=== PATIENT | male | born 1950 | race Caucasian/White ===

== ENCOUNTER 2018-10-26 01:15 | Outpatient (CLI) | payer MEDICARE, BC, SELFPAY ==
[2018-10-26 11:23] LABS: ALT 24 U/L (12-78); AST 20 U/L (15-37); Albumin 3.8 g/dL (3.4-5.0); Alkaline Phosphatase 72 U/L (46-116); Anion Gap 10.8 mmol/L (3-11); BUN 21 mg/dL (7-18); Bilirubin, Direct 0.13 mg/dL (0.00-0.20); Bilirubin, Total 0.6 mg/dL (0.2-1.0); CO2 28.2 mmol/L (21.0-32.0); CREATININE 1.07 mg/dL (0.70-1.30); Calcium 9.3 mg/dL (8.5-10.1); Chloride 105 mmol/L (98-107); Glucose 97 mg/dL (70-100); Potassium 3.9 mmol/L (3.5-5.1); Sodium 144 mmol/L (136-145); Total Protein 7.2 g/dL (6.4-8.2)
[2018-10-26 11:51] LABS: Calculated LDL 88 mg/dL; Cholesterol 163 mg/dL (50-200); HDL Cholesterol 52 mg/dL (40-60); Triglyceride 117 mg/dL (30-150)
[2018-10-27 11:09] LABS: PSA, Screening 1.9 ng/ml (0-4.5)
== END 2018-10-26 01:35 ==
PROVIDERS: PCP Family Medicine; Visit Provider Family Medicine
DX: G81.90 Hemiplegia, unspecified affecting unspecified side (principal); E78.00 Pure hypercholesterolemia, unspecified; I10 Essential (primary) hypertension; Z12.5 Encounter for screening for malignant neoplasm of prostate
CPT/HCPCS: 36415; 80053; 80061; 80076; 83721; 84153

== ENCOUNTER 2019-06-29 10:25 | Outpatient (CLI) | payer MEDICARE, BC, SELFPAY ==
--- NOTE | 2019-06-29 10:30 | DI.RAD_ITS ---
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 COMPARISON: No exams were available for comparison FINDINGS: MEDIASTINUM: Normal. HEART: Cardiomegaly PULMONARY VASCULATURE: Normal. LUNGS: Clear. PLEURAL SPACE: No pleural effusion or pneumothorax. BONE:Mild degenerative changes in the thoracic spine IMPRESSION: Cardiomegaly. No acute pulmonary findings. DATA REPOSITORY: RADIATION DOSE DELIVERED:
== END 2019-06-29 10:45 ==
PROVIDERS: PCP Family Medicine; Visit Provider Family Medicine
DX: R05 Cough (principal); I51.7 Cardiomegaly
CPT/HCPCS: 71046

== ENCOUNTER 2019-06-29 10:32 | Outpatient (CLI) | payer MEDICARE, BC, SELFPAY ==
[2019-07-02 14:03] LABS: COVID-19 RT-PCR Result Not Detected (NotDetected)
== END 2019-06-29 10:52 ==
PROVIDERS: PCP Family Medicine; Visit Provider Family Medicine
DX: Z20.828 Contact with and (suspected) exposure to other viral communicable diseases (principal); R05 Cough
CPT/HCPCS: U0003

== ENCOUNTER 2019-11-23 01:05 | Outpatient (CLI) | payer MEDICARE, BC, SELFPAY ==
--- NOTE | 2019-11-23 06:16 | DI.US_ITS ---
EXAM: US AAA SCREENING CLINICAL HISTORY: Routine screening FOR AAA, former tobacco user,z87.891 TECHNIQUE: Ultrasound performed using standard protocol. COMPARISON: No exams were available for comparison FINDINGS: Abdominal ultrasound was performed to evaluate abdominal aorta. Proximal aorta measures about 29 mil limeters in diameter which is mildly aneurysmal. The mid abdominal aorta measures about 26 millimete rs and the distal aorta measures about 19 millimeters. Common iliac arteries measure 17 millimeters in diameter maximally bilaterally. IMPRESSION: Borderline aneurysmal proximal abdominal aorta. No other significant findings. DATA REPOSITORY:
== END 2019-11-23 01:25 ==
PROVIDERS: PCP Family Medicine; Visit Provider Family Medicine
DX: Z87.891 Personal history of nicotine dependence (principal)
CPT/HCPCS: 76706

== ENCOUNTER 2020-11-17 02:07 | Outpatient (CLI) | payer MEDICARE, BC, SELFPAY ==
[2020-11-17 12:18] LABS: ALT 16 U/L (16-63); AST 19 U/L (15-37); Alkaline Phosphatase 77 U/L (46-116); Anion Gap 7.9 mmol/L (3-11); BUN 20 mg/dL (7-18); Bilirubin, Total 0.5 mg/dL (0.2-1.0); CO2 31.1 mmol/L (21.0-32.0); CREATININE 1.2 mg/dL (0.70-1.30); Calcium 8.8 mg/dL (8.5-10.1); Calculated LDL 85 mg/dL (<100); Chloride 104 mmol/L (98-107); Cholesterol 149 mg/dL (<200); Glucose 93 mg/dL (74-106); HDL Cholesterol 52 mg/dL (40-60); Potassium 3.5 mmol/L (3.5-5.1); Sodium 143 mmol/L (136-145); Total Protein 7.1 g/dL (6.4-8.2); Triglyceride 61 mg/dL (<150)
== END 2020-11-17 02:08 | disposition home or self-care (01) ==
LOC: LOS 02:07
PROVIDERS: PCP Family Medicine; Visit Provider Family Medicine
DX: I10 Essential (primary) hypertension (principal); E78.00 Pure hypercholesterolemia, unspecified
CPT/HCPCS: 36415; 80053; 80061

== ENCOUNTER 2020-12-29 02:19 | Outpatient (CLI) | payer MEDICARE, BC, SELFPAY ==
--- NOTE | 2020-12-29 06:45 | DI.US_ITS ---
Exam(s) US AAA DIAGNOSTIC EXAM: US AAA DIAGNOSTIC CLINICAL HISTORY: F/U Known AAA, needs annual surviellance,I71.4 COMPARISON: US US AAA SCREENING from 11/23/2019 US US AAA SCREENING from 11/23/2019 FINDINGS: Abdominal Aorta: Proximal: 3.2 x 3.1 cm Mid: 2.6 x 2.6 cm Distal: 2.3 x 2.2 cm Iliac's: Right: 1.3 x 1.4 cm Left: 1.2 x 1.5 cm The doppler velocities are within normal limits. IMPRESSION: 3.2 x 3.1 cm proximal abdominal aortic aneurysm. DATA REPOSITORY:
== END 2020-12-29 02:39 ==
PROVIDERS: PCP Family Medicine; Visit Provider Family Medicine
DX: I71.4 Abdominal aortic aneurysm, without rupture (principal)
CPT/HCPCS: 76775

== ENCOUNTER 2021-01-25 12:56 | Emergency (ER) | payer MEDICARE, BC, SELFPAY ==
--- NOTE | 2021-01-25 13:00 | DI.RAD_ITS ---
Exam(s) XR HIP RT COMPLETE AP PELVIS EXAM: XR HIP RT COMPLETE AP PELVIS CLINICAL HISTORY: pain. TECHNIQUE: 2D digital imaging was performed. COMPARISON: No exams were available for comparison FINDINGS: There is no evidence of pelvic nor hip fracture. Mild degenerative changes are noted in the hips. S acroiliac joints appear unremarkable. Multilevel disc space narrowing noted in the lower lumbar spin e. IMPRESSION: As above but no fractures. DATA REPOSITORY: RADIATION DOSE DELIVERED:
--- NOTE | 2021-01-25 13:00 | DI.RAD_ITS ---
Exam(s) XR SHOULDER RT COMPLETE 2+V EXAM: XR SHOULDER RT COMPLETE 2+V CLINICAL HISTORY: pain. TECHNIQUE: 2D digital imaging was performed. COMPARISON: CR LEFT SHOULDER COMPLETE from 07/01/2014 FINDINGS: Three views the right shoulder reveal no evidence of fracture or dislocation. No abnormal soft tissu e calcifications. No degenerative changes. No osseous lesions. IMPRESSION: DATA REPOSITORY: RADIATION DOSE DELIVERED:
--- NOTE | 2021-01-25 13:00 | DI.RAD_ITS ---
Exam(s) XR ELBOW RT COMPLETE EXAM: XR ELBOW RT COMPLETE CLINICAL HISTORY: pain. TECHNIQUE: 2D digital imaging was performed. COMPARISON: No exams were available for comparison FINDINGS: Limited two view study reveals advanced degenerative changes. No obvious fractures. No obvious join t effusion. IMPRESSION: DATA REPOSITORY: RADIATION DOSE DELIVERED:
--- NOTE | 2021-01-25 13:00 | DI.RAD_ITS ---
Exam(s) XR KNEE RT 3V AP,LAT,BURT EXAM: XR KNEE RT 3V AP,LAT,BURT CLINICAL HISTORY: pain. TECHNIQUE: 2D digital imaging was performed. COMPARISON: No exams were available for comparison FINDINGS: Three views of the right knee reveal no evidence of fracture or obvious joint effusion. Minimal dege nerative changes. No osseous lesions. Bone density is age-appropriate. IMPRESSION: No fracture evident. DATA REPOSITORY: RADIATION DOSE DELIVERED:
[2021-01-25 13:01] VITALS: BP 143/96; PULSE 66; RESP 16; TEMP 36.3; O2SAT 95
--- NOTE | 2021-01-25 13:14 | ED.GENADUL_ITS ---
Discharge Plan Disposition Patient Disposition: HOME Condition: Stable Discharge Details Clinical Impression: Contusion of arm, right, Contusion of right hip, Contusion of right knee Primary Care Provider: Jayme Eden ED Provider: Mihai Friend Home Meds and New Rx's Prescriptions: Continued (DME) nebulizers Misc See Rx Instructions .ROUTE .MEDSUPPLY Qty: 1 RF: 0 sodium chloride 0.9 % solution for nebulization 2.5 ml IH Q2H PRN (Reason: chest congestion) Qty: 90 RF: 3 aspirin [Aspir-81] 81 MG tablet,delayed release (DR/EC) 81 mg PO DAILY RF: 0 cholecalciferol (vitamin D3) [Vitamin D3] 1,000 UNIT capsule 1,000 unit PO DAILY Qty: 100 RF: 6 polyethylene glycol 3350 [Miralax] 527 GM powder 17 g PO DAILY Qty: 1 RF: 3 docusate sodium 100 MG tablet 100 mg PO DAILY RF: 0 VALIUM 5 MG tablet 2.5 mg PO DAILY PRN Qty: 20 RF: 1 atorvastatin 40 mg tablet 40 mg PO DAILY Qty: 90 RF: 3 citalopram 40 mg tablet 40 mg PO DAILY Qty: 90 RF: 3 hydrochlorothiazide 50 mg tablet 50 mg PO DAILY Qty: 90 RF: 3 clonidine [Rvlufjar-ZEA-0] 0.3 mg/24 hr patch weekly 1 patch Transdermal WEEKLY Qty: 12 RF: 3 potassium chloride [Klor-Con 10] 10 mEq tablet extended release 20 meq PO DAILY Qty: 180 RF: 3 lisinopril 40 mg tablet 40 mg PO DAILY Qty: 90 RF: 3 minoxidil 10 mg tablet 10 mg PO BID Qty: 180 RF: 3 atenolol 25 mg tablet 25 mg PO BID Qty: 180 RF: 3 dantrolene 100 mg capsule 100 mg PO TID Qty: 270 RF: 3 gabapentin [Neurontin] 300 mg capsule 600 mg PO TID Qty: 540 RF: 3 latanoprost [Xalatan] 2.5 ML drops 1 drp OU HS RF: 0 dorzolamide [Trusopt] 10 ML drops 1 drp OD BID RF: 0 Discharge Instructions Instructions: Contusion in Adults (ED) Additional Instructions: your xrays did not show any concerning findings, no broken bones if pain continues in a week follow up with your primary care provider if you feel more ill, have new pain such as abdominal pain or chest pain return to the emergency department Medical Decision Making 70 yo male with hx of prior cva which left him with decreased sensation on the right, reduced function of the right leg though can still walk and no use of his right arm, who comes in with right hip pain. On Friday he was on the toilet and grabbed the door handle to get off the toilet which he normally does but then know turned and he fell onto his right side, no loc and states purely mechanical and has no preceding symptoms. He has had pain in the right shoulder and elbow area as well as right hip since. He is able to bear weight on the leg though with some pain. He has no traumatic findings on visual exam, no contusions or bony deformity of the arm or leg. He has some tenderness to the anterior shoulder and some olecranon tenderness, no range of motion of the arm but this is chronic from his stroke per the patient. Has tenderness over the right lateral hip, as well as anterior knee but is bearing weight and can range both extremities. Suspect contusion but will xray shoulder, elbow, hip and knee. No chest or abdominal tenderness and no head or neck tenderness so do not feel ct head, c spine, chest/abd/pelvis indicated xrays negative for acute findings, he remains stable and no new pain elsewhere. Suspect contusion, he is able to bear weight on the leg so do not feel ct or mri indicated. He will f/u with pcp if pain continues in a week and return precautions given Differential Diagnosis Differential Diagnosis: contusion, fracture Imaging Data Radiologic Study: Attestation: I personally reviewed and interpreted this imaging study as follows: Imaging: X-Ray Radiologist's impression: elbow FINDINGS: Limited two view study reveals advanced degenerative changes. No obvious fractures. No obvious joint effusion. Radiologic Study #2: Attestation: I personally reviewed and interpreted this imaging study as follows: Imaging: X-Ray Radiologist's impression: Exam(s) XR SHOULDER RT COMPLETE 2+V EXAM: XR SHOULDER RT COMPLETE 2+V CLINICAL HISTORY: pain. TECHNIQUE: 2D digital imaging was performed. COMPARISON: CR LEFT SHOULDER COMPLETE from 07/01/2014 FINDINGS: Three views the right shoulder reveal no evidence of fracture or dislocation. No abnormal soft tissue calcifications. No degenerative changes. No osseous l esions. Radiologic Study #3: Attestation: I personally reviewed and interpreted this imaging study as follows: Imaging: X-Ray Radiologist's impression: no acute findings hip xray Radiologic Study #4: Attestation: I personally reviewed and interpreted this imaging study as follows: Imaging: X-Ray Radiologist's impression: no findings on knee xray HPI General Mode of arrival: ambulatory . Date/Time Provider Initiated Documentation: 01/25/21 13:03 . Limitations to Documentation: no limitations . Information obtained by: patient . History of Present Illness 70 year old M presents to the emergency department with the chief complaint of right hip pain, described as moderate, Quality is described as aching, and it has been constant. No relieving factors improve symptom(s), No exacerbating factors reported . Patient notes no other symptoms.. Patient did receive the following treatments prior to arrival, none Related Data Home Medications Medication Instructions Recorded Confirmed aspirin [Aspir-81] 81 mg PO DAILY tab-cap 01/08/13 01/25/21 dorzolamide [Trusopt] 1 drp OD BID 07/01/14 01/25/21 latanoprost [Xalatan] 1 drp OU HS 07/01/14 01/25/21 cholecalciferol (vitamin D3) 1,000 unit PO DAILY #100 tab-cap 09/05/14 01/25/21 [Vitamin D3] docusate sodium 100 mg PO DAILY tab-cap 04/25/15 01/25/21 polyethylene glycol 3350 [Miralax] 17 g PO DAILY #1 bottle 04/25/15 01/25/21 nebulizers #1 each 06/25/19 12/08/20 sodium chloride 0.9 % for 2.5 ml IH Q2H PRN #90 ml 06/25/19 01/25/21 nebulization atorvastatin 40 mg tablet 40 mg PO DAILY #90 tab 02/15/20 01/25/21 citalopram 40 mg tablet 40 mg PO DAILY #90 tab 02/15/20 01/25/21 hydrochlorothiazide 50 mg tablet 50 mg PO DAILY #90 tab 02/15/20 01/25/21 clonidine 0.3 mg/24 hr weekly 1 patch TRANSDERMAL WEEKLY #12 ea 05/12/20 01/25/21 transdermal patch potassium chloride 10 mEq 20 meq PO DAILY #180 tab-cap 05/15/20 01/25/21 tablet,extended release lisinopril 40 mg tablet 40 mg PO DAILY #90 tab 08/17/20 01/25/21 minoxidil 10 mg tablet 10 mg PO BID #180 tab-cap 08/17/20 01/25/21 atenolol 25 mg tablet 25 mg PO BID #180 tab 11/16/20 01/25/21 dantrolene 100 mg capsule 100 mg PO TID #270 tab-cap 11/16/20 01/25/21 gabapentin 300 mg capsule 600 mg PO TID #540 cap 11/16/20 01/25/21 Previous Rx's Medication Instructions Recorded nebulizers #1 each 06/25/19 sodium chloride 0.9 % for 2.5 ml IH Q2H PRN #90 ml 06/25/19 nebulization atorvastatin 40 mg tablet 40 mg PO DAILY #90 tab 02/15/20 citalopram 40 mg tablet 40 mg PO DAILY #90 tab 02/15/20 hydrochlorothiazide 50 mg tablet 50 mg PO DAILY #90 tab 02/15/20 clonidine 0.3 mg/24 hr weekly 1 patch TRANSDERMAL WEEKLY #12 ea 05/12/20 transdermal patch potassium chloride 10 mEq 20 meq PO DAILY #180 tab-cap 05/15/20 tablet,extended release lisinopril 40 mg tablet 40 mg PO DAILY #90 tab 08/17/20 minoxidil 10 mg tablet 10 mg PO BID #180 tab-cap 08/17/20 atenolol 25 mg tablet 25 mg PO BID #180 tab 11/16/20 dantrolene 100 mg capsule 100 mg PO TID #270 tab-cap 11/16/20 gabapentin 300 mg capsule 600 mg PO TID #540 cap 11/16/20 Allergies Allergy/AdvReac Type Severity Reaction Status Date / Time Penicillins Allergy rash Verified 01/25/21 13:05 General Stated Complaint: Orthopedic MAURILIO: 3 Review of Systems All systems reviewed & are unremarkable except as noted in HPI and below Constitutional Constitutional: Denies chills, Denies fever(s) and Denies weakness Cardiovascular Cardiovascular: Denies chest pain and Denies dyspnea Respiratory Respiratory: Denies cough and Denies dyspnea Gastrointestinal Gastrointestinal: Denies abdominal pain, Denies nausea and Denies vomiting Musculoskeletal Musculoskeletal: Denies joint swelling Neurologic Neurologic: Denies weakness [facility] Medical History AAA (abdominal aortic aneurysm) 2.9 cm in 2020, needs annual surveillance Dysmetabolic syndrome 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 Essential hypertension Father Essential hypertension COPD (chronic obstructive pulmonary disease) Brother Age: 71 No problems noted. Brother Age: 74 No problems noted. Other Heart disease Social History Smoking/Tobacco Use Status: Former Tobacco Use Smoking risk assessment performed?: Yes Alcohol Intake: never Drug use: Never Substance use type: does not use Household members: spouse Housing: house Number of Children: 32 Communication Needs: None current occupation: retired from [employer] Parents What is your relationship status?: How often do you talk on the phone with friends or family?: three or more times per week How often do you get together with friends or relatives?: three or more times per week Panel score (0-1 are the most socially isolated patients): 2 What type of physical activity do you participate in: walking and regular exercise Duration: 15-30 minutes/day Frequency: daily Seatbelt use: always Drive intox or ride w/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 Working smoke detector in home: Yes Fire extinguisher in home: Yes Carbon monox detector in home: Yes Do you feel safe at home: Yes Do you feel safe in your relationship?: Yes Exam Const General: no acute distress Orientation: alert HENMT Head: normal to inspection Ears: external ears normal General nose exam: external nose normal Mouth: moist mucous membranes Eyes General: appearance normal, both eyes and all related structures Neck Neck: normal visual inspection Resp Effort & Inspection: normal respiratory effort and able to speak in complete sentences Cardio Rate: regular rate Skin General skin exam: no rashes or lesions noted Neuro General: patient alert and patient oriented x3 Extrem General: capillary refill normal Psych Mental Status: mental status grossly normal Course Vital Signs Vital signs: Vital Signs Temperature 36.3 C L 01/25/21 13:01 Pulse 66 01/25/21 13:01 Respiratory Rate 16 01/25/21 13:01 Blood Pressure 143/96 H 01/25/21 13:01 Pulse Oximetry 95 01/25/21 13:01 Temperature 36.3 C L 01/25/21 13:01 Temperature Source Tympanic 01/25/21 13:01 Pulse 66 01/25/21 13:01 Respiratory Rate 16 01/25/21 13:01 Blood Pressure 143/96 H 01/25/21 13:01 Blood Pressure Position Sitting 01/25/21 13:01 Pulse Oximetry 95 01/25/21 13:01 Pain Level 99 01/25/21 13:01
== END 2021-01-25 14:49 | disposition home or self-care (01) ==
PROVIDERS: Emergency Provider Emergency Medicine; PCP Family Medicine
DX: S70.01XA Contusion of right hip, initial encounter (principal); S80.01XA Contusion of right knee, initial encounter; S40.021A Contusion of right upper arm, initial encounter; M25.511 Pain in right shoulder; W19.XXXA Unspecified fall, initial encounter; I69.351 Hemiplegia and hemiparesis following cerebral infarction affecting right dominant side
CPT/HCPCS: 73562; 99284; 73030; 73080; 73502

== ENCOUNTER → 2021-12-10 02:03 | Outpatient (CLI) | payer MEDICARE, BC, SELFPAY ==
--- NOTE | 2021-12-10 07:15 | DI.US_ITS ---
Exam(s) US AAA DIAGNOSTIC EXAM: US AAA DIAGNOSTIC CLINICAL HISTORY: Annual surveillance OF AAA, I71.4 COMPARISON: US US AAA DIAGNOSTIC from 12/29/2020 FINDINGS: On the present study there is no evidence of true abdominal aortic aneurysm. Maximum diameter is 2.4 cm proximally and the abdominal aorta tapers normally towards its distal aspect. The visualized com mon iliac arteries to exhibit mild arterial megaly, with diameter 1.5 cm on the right and 1.6 cm on t he left. IMPRESSION: No evidence of abdominal aortic aneurysm. Mild arterial megaly of the common iliac arteries noted. DATA REPOSITORY:
== END ==
PROVIDERS: PCP Family Medicine; Visit Provider Family Medicine
DX: I71.4 Abdominal aortic aneurysm, without rupture (principal); I77.89 Other specified disorders of arteries and arterioles
CPT/HCPCS: 76775

== ENCOUNTER → 2021-12-24 09:08 | Outpatient (CLI) | payer MEDICARE, BC, SELFPAY ==
--- NOTE | 2021-12-24 08:16 | DI.CT_ITS ---
Exam(s) CT ABDOMEN PELVIS W EXAM: CT ABDOMEN PELVIS W CLINICAL HISTORY: rectal pain K62.89. TECHNIQUE: Imaging Protocol: Axial computed tomography images with coronal and sagittal reformatted images were created and reviewed CONTRAST MATERIAL: Intravenous: Omnipaque 350 Contrast volume:100 ml Oral: yes COMPARISON: US US AAA DIAGNOSTIC from 12/10/2021 FINDINGS: ABDOMEN: Lung Bases: The heart is enlarged. There is mitral annular calcification, aortic valve calcification as well as coronary artery calcification. The lung bases are clear. Liver: Normal density. No measurable mass. Gallbladder and biliary tract: No radiodense calculus or dilation. Pancreas: Normal density, no abnormal calcifications or inflammatory process. Spleen: Normal. Kidneys: Normal size, contour and axis. No radiodense stones or obstructive uropathy. No masses seen. Adrenal glands: No masses seen. Abdominal Aorta: Abdominal portion non-dilated. Mild atherosclerotic changes. PELVIS: Bladder: Nearly empty, not well evaluated. Question of diffuse wall thickening. No calculi.No gross evidence of a focal mass. Bowel: Moderate quantity of stool. No obstruction or bowel wall thickening. Appendix normal. No rec adelita wall thickening. Peritoneal cavity: No ascites, collection or mesenteric inflammatory response. Bones: Degenerative disc changes greatest at L3-4 and L4-5. Reproductive organs: Enlarged prostate. Lymph nodes: Unremarkable. Soft tissues: Bilateral inguinal hernias, right greater than left containing fat and a small amount o f fluid. Impression: Enlarged prostate. Bladder wall thickening. No rectal abnormality or other bowel abnormality identified. Bilateral inguinal hernias, right greater than left. RADIATION DOSE DELIVERED: 1,238.75mGy.cm Total DLP DATA REPOSITORY: All CT scans at this facility are submitted to the National Radiology Data Registry (NRDR) Dose Index Registry (DIR) with the [employer] ([employer]). RADIATION OPTIMIZATION: All CT scans at this facility use at least one of these dose optimization te chniques: automated exposure control; mA and/or kV adjustment per patient size (includes targeted exa ms where dose is matched to clinical indication); or iterative reconstruction.
[2021-12-24 09:47] LABS: Abs Immature Grans 0.02 10^3/uL (0.0-0.06); Absolute Basophil Count 0.04 10^3/uL (0.0-0.2); Absolute Lymphocyte Count 1.71 10^3/uL (1.2-3.4); Absolute Neutrophil Count 2.94 10^3/uL (1.2-6.7); Basophils % 0.7; Eosinophils % 3.6; HCT 39.3 % (40.0-50.0); HGB 14.3 g/dL (13.5-17.5); Immature Grans % 0.4; MCHC 36.4 % (32.0-36.0); MCV 91 fL (80-95); MPV 12.1 fL (8.0-11.0); Monocytes % 10.9; Neutrophils % 53.4; Platelet Count 139 10^3/uL (130-400); RBC 4.33 10^6/uL (4.36-5.78); RDW 12.5 % (11.8-14.1); RDW-SD 41.1 fL; WBC 5.51 10^3/uL (4.4-10.8)
[2021-12-24 10:05] LABS: ALT 19 U/L (16-63); AST 16 U/L (15-37); Albumin 3.5 g/dL (3.4-5.0); Alkaline Phosphatase 81 U/L (46-116); Anion Gap 8.9 mmol/L (3-11); BUN 15 mg/dL (7-18); Bilirubin, Total 0.4 mg/dL (0.2-1.0); CO2 29.1 mmol/L (21.0-32.0); CREATININE 1.1 mg/dL (0.70-1.30); Calcium 8.7 mg/dL (8.5-10.1); Chloride 104 mmol/L (98-107); Estimated GFR 72.22 (mL/min/1.73m2); Glucose 72 mg/dL (74-106); Potassium 3.1 mmol/L (3.5-5.1); Sodium 142 mmol/L (136-145); Total Protein 7.4 g/dL (6.4-8.2)
[2021-12-24] MEDS: Omnipaque 350 MG/ML 500 ML BTL-Imaging package IJ (11:05)
[2021-12-24] MEDS: Normal Saline Flush 10 ML SYR IVP (11:08)
== END ==
PROVIDERS: PCP Family Medicine; Visit Provider Physician Assistant
DX: K62.89 Other specified diseases of anus and rectum (principal); K40.20 Bilateral inguinal hernia, without obstruction or gangrene, not specified as recurrent; N40.0 Benign prostatic hyperplasia without lower urinary tract symptoms
CPT/HCPCS: 36415; 80053; 74177; 85025

== ENCOUNTER 2022-09-11 03:34 | Outpatient (CLI) | payer MEDICARE, BC, SELFPAY ==
[2022-09-11 09:48] LABS: ESR 5 mm/hr (0-20)
[2022-09-11 09:58] LABS: ALT 19 U/L (16-63); AST 15 U/L (15-37); Albumin 3.7 g/dL (3.4-5.0); Alkaline Phosphatase 89 U/L (46-116); Anion Gap 5.8 mmol/L (3-11); BUN 20 mg/dL (7-18); Bilirubin, Total 0.6 mg/dL (0.2-1.0); CO2 31.2 mmol/L (21.0-32.0); CREATININE 1.1 mg/dL (0.70-1.30); Calcium 8.7 mg/dL (8.5-10.1); Calculated LDL 98 mg/dL (<100); Chloride 102 mmol/L (98-107); Cholesterol 169 mg/dL (<200); Estimated GFR 72.22 (mL/min/1.73m2); Glucose 104 mg/dL (74-106); HDL Cholesterol 58 mg/dL (40-60); Potassium 3.2 mmol/L (3.5-5.1); Sodium 139 mmol/L (136-145); Total Protein 7.6 g/dL (6.4-8.2); Triglyceride 67 mg/dL (<150)
== END 2022-09-11 03:35 | disposition home or self-care (01) ==
LOC: LBO 03:34
PROVIDERS: PCP Family Medicine; Referring Provider Family Medicine; Visit Provider Family Medicine
DX: E78.00 Pure hypercholesterolemia, unspecified (principal); R51.9 Headache, unspecified
CPT/HCPCS: 36415; 80053; 80061; 85652; 86140

== ENCOUNTER → 2023-01-09 00:46 | Outpatient (CLI) | payer MEDICARE, BC, SELFPAY ==
--- NOTE | 2023-01-09 06:20 | DI.US_ITS ---
Exam(s) US AAA DIAGNOSTIC EXAM: US AAA DIAGNOSTIC CLINICAL HISTORY: Annual surveillance;discrepencies in prior reports,F/U AAA,I71.4 COMPARISON: US US AAA DIAGNOSTIC from 12/10/[address] ABDOMEN PELVIS W from 12/24/2021 FINDINGS: Abdominal Aorta: Proximal: 1.5 x 1.9 cm Mid: 1.3 x 1.9 cm Distal: 1.8 x 2.4 cm Iliac's: Right: 1.2 x 0.8 cm Left: 1.2 x 1.0 cm Minimal atherosclerosis. IMPRESSION: No evidence of abdominal aortic aneurysm. DATA REPOSITORY:
== END ==
PROVIDERS: PCP Family Medicine; Visit Provider Family Medicine
DX: I71.40 Abdominal aortic aneurysm, without rupture, unspecified (principal)
CPT/HCPCS: 76775

== ENCOUNTER 2023-12-22 03:07 | Outpatient (CLI) | payer MEDICARE, BC, SELFPAY ==
[2023-12-22 12:24] LABS: Anion Gap 7.2 mmol/L (3-11); BUN 18 mg/dL (7-18); CO2 29.8 mmol/L (21.0-32.0); CREATININE 1.1 mg/dL (0.70-1.30); Calcium 9.3 mg/dL (8.5-10.1); Chloride 102 mmol/L (98-107); Estimated GFR 71.32 (mL/min/1.73m2); Glucose 122 mg/dL (74-106); Potassium 3.4 mmol/L (3.5-5.1); Sodium 139 mmol/L (136-145)
== END 2023-12-22 03:08 | disposition home or self-care (01) ==
LOC: LOS 03:08
PROVIDERS: PCP Family Medicine; Visit Provider Family Medicine
DX: I10 Essential (primary) hypertension (principal)
CPT/HCPCS: 36415; 80048

== ENCOUNTER 2024-08-04 02:07 | Outpatient (CLI) | payer MEDICARE, BC, SELFPAY ==
[2024-08-04 22:39] LABS: IgE 8 IU/mL (<158)
[2024-08-05 09:34] LABS: C3 Complement 104 mg/dL (81-157); C4 Complement 20 mg/dL (13-39)
[2024-08-05 11:34] LABS: IgG 917 mg/dL (610-1616)
[2024-08-05 14:20] LABS: Albumin 58.8 % (55.8-66.1); Albumin g/dL 3.8 g/dL (3.6-5.2); Total Protein 6.5 g/dL (6.3-8.2)
[2024-08-06 10:44] LABS: Immunoglobulin Subclass IgG4 37.3 mg/dL
== END 2024-08-04 02:08 | disposition home or self-care (01) ==
PROVIDERS: PCP Family Medicine; Visit Provider Student in an Organized Health Care Education/Training Program
DX: J90 Pleural effusion, not elsewhere classified (principal)
CPT/HCPCS: 36415; 82784; 82787; 82785; 84165; 86160

== ENCOUNTER 2024-08-27 11:46 | Outpatient (CLI) | payer MEDICARE, BC, SELFPAY ==
--- NOTE | 2024-08-27 11:30 | DI.US_ITS ---
Exam(s) US LOWER EXTREMITY VENOUS RT EXAM: US LOWER EXTREMITY VENOUS RT CLINICAL HISTORY: Lower extremity edema, R60.0, R/O DVT TECHNIQUE: Grayscale, color, and doppler imaging of the deep venous system of the right lower extrem ity was performed. COMPARISON: US US AAA DIAGNOSTIC from 01/09/2023 FINDINGS: There is no evidence of intraluminal thrombus and there is normal compression and augmentation demons trated within the common femoral vein, femoral vein, and popliteal vein. In the ipsilateral calf the interrogated veins also exhibit normal compression/ augmentation properti es. The ipsilateral saphenofemoral junction is patent. IMPRESSION: 1. No evidence of DVT in the right lower extremity. DATA REPOSITORY:
== END 2024-08-27 12:06 ==
LOC: DI 11:47
PROVIDERS: PCP Family Medicine; Visit Provider Family Medicine
DX: R60.0 Localized edema (principal)
CPT/HCPCS: 93971

== ENCOUNTER 2025-02-01 01:23 | Outpatient (CLI) | payer MEDICARE, BC, SELFPAY ==
[2025-02-01 15:57] LABS: Abs Immature Grans 0.02 10^3/uL (0.0-0.06); HCT 39.6 % (40.0-50.0); HGB 13.5 g/dL (13.5-17.5); Immature Grans % 0.3 %; MCH 30.3 pg (27.0-33.0); MCHC 34.1 % (32.0-36.0); MCV 89 fL (80-95); MPV 12.0 fL (8.0-11.0); Platelet Count 177 10^3/uL (130-400); RBC 4.45 10^6/uL (4.36-5.78); RDW 13.6 % (11.8-14.1); RDW-SD 44.3 fL; WBC 6.36 10^3/uL (4.4-10.8)
[2025-02-01 16:17] LABS: ALT 15 U/L (16-63); AST 17 U/L (15-37); Albumin 3.4 g/dL (3.4-5.0); Alkaline Phosphatase 99 U/L (46-116); Anion Gap 8.9 mmol/L (3-11); BUN 17 mg/dL (7-18); Bilirubin, Total 0.3 mg/dL (0.2-1.0); CO2 30.1 mmol/L (21.0-32.0); Calcium 8.7 mg/dL (8.5-10.1); Chloride 102 mmol/L (98-107); Glucose 109 mg/dL (74-106); Potassium 3.5 mmol/L (3.5-5.1); Sodium 141 mmol/L (136-145); Total Protein 7.4 g/dL (6.4-8.2)
== END 2025-02-01 01:24 | disposition home or self-care (01) ==
PROVIDERS: PCP Family Medicine; Visit Provider Physician Assistant
DX: I50.9 Heart failure, unspecified (principal)
CPT/HCPCS: 36415; 80053; 83880; 85025